=== PATIENT | male | born 1975 | race Hispanic/Latino ===

== ENCOUNTER 2020-01-08 13:49 | Emergency (ER) | payer BC ==
--- NOTE | 2020-01-08 16:12 | EDPHYS ---
Physician Documentation [facility] Name: Kamran Cano Age: 44 yrs Sex: Male : 1975 Arrival Date: 01/08/2020 Time: 14:09 Bed 5 Private MD: ED Physician Raj Flores HPI: 01/07 16:10 This 44 yrs old Male presents to ER via Ambulatory with complaints of ma2 Breathing Difficulty. 16:10 The patient has shortness of breath during heavy activity. Onset: The symptoms/episode ma2 began/occurred gradually, 1 day(s) ago. Associated signs and symptoms: Pertinent positives: non-productive cough, Pertinent negatives: diaphoresis, dizziness, hemoptysis, numbness in extremities. Severity of symptoms: At their worst the symptoms were mild in the emergency department the symptoms are unchanged. The patient has not experienced similar symptoms in the past. Historical: - Allergies: 14:26 No Known Allergies; bp - Home Meds: 14:26 None [Active]; bp - PMHx: 14:26 None; bp - PSHx: 14:26 Appendectomy; bp - Immunization history:: Adult Immunizations up to date. - Social history:: Smoking status: Patient denies any tobacco usage or history of. Patient/guardian denies using alcohol, street drugs, The patient lives with family. - Family history:: not pertinent. ROS: 16:10 Constitutional: Negative for fever, chills, and weight loss. ma2 16:10 All other systems are negative. Exam: 16:10 Constitutional: This is a well developed, well nourished patient who is awake, alert, ma2 and in no acute distress. Head/Face: Normocephalic, atraumatic. Eyes: Pupils equal round and reactive to light, extra-ocular motions intact. Lids and lashes normal. Conjunctiva and sclera are non-icteric and not injected. Cornea within normal limits. Periorbital areas with no swelling, redness, or edema. ENT: Nares patent. No nasal discharge, no septal abnormalities noted. Tympanic membranes are normal and external auditory canals are clear. Oropharynx with no redness, swelling, or masses, exudates, or evidence of obstruction, uvula midline. Mucous membranes moist. Neck: Trachea midline, no thyromegaly or masses palpated, and no cervical lymphadenopathy. Supple, full range of motion without nuchal rigidity, or vertebral point tenderness. No Meningismus. Chest/axilla: Normal chest wall appearance and motion. Nontender with no deformity. No lesions are appreciated. Cardiovascular: Regular rate and rhythm with a normal S1 and S2. No gallops, murmurs, or rubs. Normal PMI, no JVD. No pulse deficits. Respiratory: Lungs have equal breath sounds bilaterally, clear to auscultation and percussion. No rales, rhonchi or wheezes noted. No increased work of breathing, no retractions or nasal flaring. Abdomen/GI: Soft, non-tender, with normal bowel sounds. No distension or tympany. No guarding or rebound. No evidence of tenderness throughout. Back: No spinal tenderness. No costovertebral tenderness. Full range of motion. Skin: Warm, dry with normal turgor. Normal color with no rashes, no lesions, and no evidence of cellulitis. MS/ Extremity: Pulses equal, no cyanosis. Neurovascular intact. Full, normal range of motion. Neuro: Awake and alert, GCS 15, oriented to person, place, time, and situation. Cranial nerves II-XII grossly intact. Motor strength 5/5 in all extremities. Sensory grossly intact. Cerebellar exam normal. Normal gait. Vital Signs: 14:24 BP 137 / 91; Pulse 106; Resp 16; Temp 98; Pulse Ox 100% ; Weight 104.33 kg; Height 5 bp ft. 2 in. (157.48 cm); 15:30 BP 128 / 78; Pulse 86; Resp 18; Pulse Ox 97% on R/A; em 14:24 Body Mass Index 42.07 (104.33 kg, 157.48 cm) bp MDM: 15:08 Patient medically screened. ma2 16:10 Differential diagnosis: Bronchitis pneumonia, reactive airway disease. Antibiotic ma2 administration: The patient is discharged and will get outpatient antibiotics. Data reviewed: vital signs, nurses notes. Counseling: I had a detailed discussion with the patient and/or guardian regarding: the historical points, exam findings, and any diagnostic results supporting the discharge/admit diagnosis, the presence of at least one elevated blood pressure reading (>120/80) during this emergency department visit, the need for outpatient follow up. Response to treatment: the patient's symptoms have markedly improved after treatment. 07/03 15:30 Order name: COVID-19 [facility] 01/07 15:30 Order name: Flu [facility] 01/07 15:30 Order name: Chest Single View XRAY [facility] 01/07 15:30 Order name: Strep [facility] 01/07 15:30 Order name: Document PUI#; Complete Time: 16:32 [facility] 01/07 15:30 Order name: Droplet/Contact Precautions; Complete Time: 15:55 [facility] 01/07 15:30 Order name: Labs collected and sent; Complete Time: 15:55 [facility] 01/07 15:30 Order name: Notify [facility] [phone]/ ; Complete Time: 15:55 [facility] 01/07 15:30 Order name: O2 Per Protocol; Complete Time: 15:55 Administered Medications: 16:25 Drug: AZITHromycin 500 mg Route: PO; em 16:45 Follow up: Response: No adverse reaction em 16:25 Drug: Dexamethasone 10 mg Route: PO; em 16:45 Follow up: Response: No adverse reaction em Disposition: 01/08/20 16:11 Discharged to Home. Impression: Acute bronchitis. - Condition is Stable. - Discharge Instructions: Acute Bronchitis, Adult. - Prescriptions for Atrovent 0.03 % Nasal Aerosol, Kress - inhale 2 spray by INTRANASAL route 2 times per day for 7 days; 1 bottle. Diclofenac Sodium 75 mg Oral Tablet Sustained Release - take 1 tablet by ORAL route 2 times per day; 30 tablet. Zithromax Z- Giuseppe 250 mg Oral Tablet - take 1 tablet by ORAL route as directed for 5 days Day 1 - take two (2) tablets one time. Day 2, 3, 4 , 5 take one (1) tablet once daily.; 6 tablet. Medrol (Giuseppe) 4 mg Oral Tablets, Dose Pack - take 1 tablet by ORAL route as directed - follow package instructions; 1 packet. Albuterol Sulfate 90 mcg/actuation - inhale 1-2 puff by INHALATION route every 4-6 hours; 1 Inhaler. - Medication Reconciliation Form, Thank You Letter, Antibiotic Education, Prescription Opioid Use form. - Follow up: Private Physician; When: Tomorrow; Reason: Recheck today's complaints, Continuance of care. Signatures: Dispatcher [employer] Elmer Wilson, RN RN Jimbo Smith RN RN bp Raj Flores MD MD ma2 Corrections: (The following items were deleted from the chart) 16:50 16:11 01/08/2020 16:11 Discharged to Home. Impression: Acute bronchitis. Condition is em Stable. Prescriptions for Atrovent 0.03 % Nasal Aerosol, Kress - inhale 2 spray by INTRANASAL route 2 times per day for 7 days; 1 bottle, Diclofenac Sodium 75 mg Oral Tablet Sustained Release - take 1 tablet by ORAL route 2 times per day; 30 tablet, Zithromax Z-Giuseppe 250 mg Oral Tablet - take 1 tablet by ORAL route as directed for 5 days Day 1 - take two (2) tablets one time. Day 2, 3, 4 , 5 take one (1) tablet once daily.; 6 tablet, Medrol (Giuseppe) 4 mg Oral Tablets, Dose Pack - take 1 tablet by ORAL route as directed - follow package instructions; 1 packet, Albuterol Sulfate 90 mcg/actuation - inhale 1-2 puff by INHALATION route every 4-6 hours; 1 Inhaler. and Forms are Medication Reconciliation Form, Thank You Letter, Antibiotic Education, Prescription Opioid Use. Follow up: Private Physician; When: Tomorrow; Reason: Recheck today's complaints, Continuance of care. ma2
--- NOTE | 2020-01-08 16:12 | ER ---
Nurse's Notes [facility] Name: Kamran Cano Age: 44 yrs Sex: Male : 1975 Arrival Date: 01/08/2020 Time: 14:09 Bed 5 Private MD: Diagnosis: Acute bronchitis Presentation: 01/07 14:24 Chief complaint: Patient states: SOB/COUGH SINCE WAKING. Coronavirus screen: Surgical bp mask placed on patient. Patient moved to private room, placed in contact and droplet isolation with eye protection until further assessment. Patient reports a cough. Patient reports shortness of breath or difficulty breathing. Patient denies measured and/or subjective temperature greater than 100.4F prior to today's visit. Patient denies travel on a cruise ship or to a country the [facility] currently lists as an affected area. Ebola Screen: No symptoms or risks identified at this time. Initial Sepsis Screen: Does the patient meet any 2 criteria? HR > 90 bpm. No. Patient's initial sepsis screen is negative. Does the patient have a suspected source of infection? No. Patient's initial sepsis screen is negative. Risk Assessment: Do you want to hurt yourself or someone else? Patient reports no desire to harm self or others. Onset of symptoms was January 08, 2020. 14:24 Method Of Arrival: Ambulatory bp 14:24 Acuity: RANI 3 bp 14:24 Care prior to arrival: Medication(s) given: THERA-FLU. bp Historical: - Allergies: 14:26 No Known Allergies; bp - Home Meds: 14:26 None [Active]; bp - PMHx: 14:26 None; bp - PSHx: 14:26 Appendectomy; bp - Immunization history:: Adult Immunizations up to date. - Social history:: Smoking status: Patient denies any tobacco usage or history of. Patient/guardian denies using alcohol, street drugs, The patient lives with family. - Family history:: not pertinent. Screenin:00 Abuse screen: Denies threats or abuse. Nutritional screening: No deficits noted. em Tuberculosis screening: No symptoms or risk factors identified. Fall Risk None identified. Assessment: 15:30 General: Appears in no apparent distress. comfortable, Behavior is calm, cooperative, em appropriate for age, Denies fever. Pain: Denies pain. Neuro: Level of Consciousness is awake, alert, obeys commands, Oriented to person, place, time, situation, Appropriate for age. Cardiovascular: Capillary refill < 3 seconds Patient's skin is warm and dry. Rhythm is regular. Respiratory: Reports shortness of breath cough that is dry, labored breathing Airway is patent Respiratory effort is even, unlabored, Respiratory pattern is regular, symmetrical, Breath sounds with wheezes bilaterally. GI: Abdomen is flat. Derm: Skin is intact, is healthy with good turgor, Skin is pink, warm \T\ dry. Musculoskeletal: Capillary refill < 3 seconds, Range of motion: intact in all extremities. Vital Signs: 14:24 BP 137 / 91; Pulse 106; Resp 16; Temp 98; Pulse Ox 100% ; Weight 104.33 kg; Height 5 bp ft. 2 in. (157.48 cm); 15:30 BP 128 / 78; Pulse 86; Resp 18; Pulse Ox 97% on R/A; em 14:24 Body Mass Index 42.07 (104.33 kg, 157.48 cm) bp ED Course: 14:09 Patient arrived in ED. mr 14:25 Triage completed. bp 14:26 Arm band placed on. bp 15:08 Raj Flores MD is Attending Physician. ma2 15:18 Adamaris Bates, MARGARITA is Primary Nurse. ph 16:00 Patient has correct armband on for positive identification. Call light in reach. em 16:00 No provider procedures requiring assistance completed. Patient did not have IV access em during this emergency room visit. 16:01 Chest Single View XRAY In Process Unspecified. EDMS Administered Medications: 16:25 Drug: AZITHromycin 500 mg Route: PO; em 16:45 Follow up: Response: No adverse reaction em 16:25 Drug: Dexamethasone 10 mg Route: PO; em 16:45 Follow up: Response: No adverse reaction em Outcome: 16:11 Discharge ordered by . ma2 16:42 Discharged to home ambulatory. em 16:42 Condition: good 16:42 Discharge instructions given to patient, Instructed on discharge instructions, follow up and referral plans. medication usage, Demonstrated understanding of instructions, follow-up care, medications. 16:50 Patient left the ED. em Addendum: 01/13/2020 17:25 Addendum: COVID-19 Result: Positive result giiven to ED physician to notify pt. h b Physician attempted to contact pt. 18: Addendum: COVID-19 Result: Positive result giiven to ED physician to notify pt. b Physician: Nathan Dyer MD Physician was able to contact pt and pt was notified of positive COVID-19 swab result. Physician answered pt questions. Signatures: Dispatcher [employer] EDTN Sydnee DiazElmer, RN MARGARITA Adamaris Bates RN RN Caitie Sainz RN RN Jimbo Tang RN RN Raj Flores MD MD ma2 Corrections: (The following items were deleted from the chart) 17:29 Addendum: COVID-19 Result: Positive result giiven to ED physician to notify pt. Physician: Nathan Dyer MD 17:29 Addendum: COVID-19 Result: Positive result giiven to ED physician to notify pt. Physician: Nathan Dyer MD
[2020-01-08] MEDS ORDERED: dexAMETHasone 10 MG/ML VIAL ONE (16:30)
[2020-01-08] MEDS ORDERED: AZITHROMYCIN 250 MG TAB ONE (16:30)
[2020-01-08 17:14] VITALS: TEMP 98
[2020-01-08 17:15] VITALS: BP 128/78; O2SAT 97
--- NOTE | 2020-01-08 18:37 | RAD REPORT ---
EXAM DESCRIPTION: RAD - Chest Single View - 01/08/2020 4:01 pm CLINICAL HISTORY: CONGESTION COMPARISON: None TECHNIQUE: AP portable chest image was obtained 01/08/2020 4:01 pm . FINDINGS: Lung volumes are low. No dense mass or consolidation. Lung markings are mildly prominent i n the lower lung pierson probably the affects of low lung volumes. Minimal infiltrates are unlikely bu t not excluded. No failure or volume overload. Heart and vasculature are normal. No measurable pleural effusion and no pneumothorax. No acute bony abnormality seen. No acute aortic findings suspected. IMPRESSION: Shallow inspiration exam showing no significant cardiopulmonary finding. Lung base markings are accentuated. This is probably due to low lung volume rather than infiltrate. F ollow-up two view imaging can be obtained as warranted.
== END 2020-01-08 16:50 | disposition home or self-care (01) ==
LOC: ER 13:49
DX: U07.1 COVID-19 (principal); J20.9 Acute bronchitis, unspecified
CPT/HCPCS: 87070; 87081; 87804 ×2; 71045; 99283; U0001; J1100